=== PATIENT | male | born 1945 | race Caucasian/White ===

== ENCOUNTER 2023-02-05 13:10 | Outpatient (CLI) | payer MEDICARE, BC ==
[2023-02-05] MEDS ORDERED: Magnevist 469MG/ML 20 ML VIAL ONE (17:04)
== END 2023-02-05 13:11 | disposition home or self-care (01) ==
LOC: CSHMRI 13:10
PROVIDERS: ATTEND Psychiatry & Neurology Neurology
DX: R42 Dizziness and giddiness (principal); I67.2 Cerebral atherosclerosis; G31.9 Degenerative disease of nervous system, unspecified
CPT/HCPCS: 70544; 70553; A9579

== ENCOUNTER 2023-03-15 15:06 | Outpatient (CLI) | payer MEDICARE, BC | END 2023-03-15 15:07 | disposition home or self-care (01) | LOC: CSHMRI 15:06 | PROVIDERS: ATTEND Family Medicine | DX: M50.90 Cervical disc disorder, unspecified, unspecified cervical region (principal); M48.02 Spinal stenosis, cervical region; M53.82 Other specified dorsopathies, cervical region | CPT/HCPCS: 72141 ==

== ENCOUNTER 2024-01-17 12:38 | Outpatient (CLI) | payer MEDICARE, BC ==
[~2024-01-17 12:38] MED LIST: Iopamidol 300 61% 100 ML VIAL FS ONE
== END 2024-01-17 12:39 | disposition home or self-care (01) ==
LOC: CSHCT 12:38
PROVIDERS: ATTEND Internal Medicine Gastroenterology
DX: K57.32 Diverticulitis of large intestine without perforation or abscess without bleeding (principal)
CPT/HCPCS: 74160; 82565; Q9967

== ENCOUNTER 2024-07-27 16:54 | Observation (INO) | payer MEDICARE, BC ==
[2024-07-27 18:35] LABS: Anion Gap 15 mmol/L (10-20); BUN (Urea Nitrogen) 14 mg/dL (8.4-25.7); Calc. Creatinine Clearance 0 mL/min (70-130); Calcium 9.5 mg/dL (7.8-10.44); Carbon Dioxide 25 mmol/L (23-31); Chloride 104 mmol/L (98-107); Estimated GFR 74; Glucose 94 mg/dL (83-110); Sodium 139 mmol/L (136-145)
[2024-07-27] MEDS ORDERED: Famotidine/PF 20 mg/2ml Vial ONE (18:37)
[2024-07-27] MEDS ORDERED: Ondansetron PF 4 MG/2 ML Vial ONE (18:37)
[2024-07-27 18:38] LABS: Hematocrit 39.3 % (38.8-50.0); Hemoglobin 13.6 g/dL (13.5-17.5); Mean Corpuscular HGB CONC 34.6 g/dL (32.0-36.0); Mean Corpuscular Hemoglobin 31.3 pg (27.0-33.0); Mean Corpuscular Volume 90.6 fL (81.2-95.1); Platelet Count 129 10x3/uL (150-450); RBC Distribution Width 17.2 % (11.5-14.5); Red Blood Cell (RBC) Count 4.34 10x6/uL (4.32-5.72); White Blood Cell (WBC) Count 7.8 10x3/uL (3.5-10.5)
[2024-07-27 18:39] LABS: MDiff Complete? YES
[2024-07-27 18:43] LABS: Troponin I 0.023 ng/mL (< 0.028)
[2024-07-27 20:21] LABS: Troponin I 0.046 ng/mL (< 0.028)
[2024-07-27 20:31] LABS: Lymphocytes 13 % (21-51)
[2024-07-27 20:32] LABS: Monocytes 46 % (0-10)
[2024-07-27 20:34] LABS: Band 5 % (5-11); Neutrophil 36 % (42-75)
[2024-07-27 20:40] LABS: Anisocytosis SLIGHT = 6-15 cells (100X) (0-5/hpf)
[2024-07-27 20:41] LABS: Platelet Adequacy Comment Appears Decreased
[2024-07-27] MEDS ORDERED: Acetaminophen 325 MG TAB PO PRN (21:21)
[2024-07-27] MEDS ORDERED: Calcium Carbonate 500 MG ChewTAB PO PRN (21:21)
[2024-07-27] MEDS ORDERED: Senokot S 8.6-50 MG TAB PO PRN (21:21)
[2024-07-27] MEDS ORDERED: Ondansetron PF 4 MG/2 ML Vial IVP PRN (21:21)
[2024-07-27 22:27] VITALS: BMI 28.8
[2024-07-27] MEDS: Pantoprazole 40 MG VIAL IVP SCH (23:46)
[2024-07-27] MEDS: Apixaban 5 MG TAB PO SCH (23:46)
[2024-07-27] MEDS: Ciprofloxacin 500 MG TAB PO SCH (23:47)
[2024-07-27] MEDS: metroNIDAZOLE 250 MG TAB PO SCH (23:47)
[2024-07-28 00:03] LABS: Influenza A by NAA Not Detected (NotDetected); Influenza B by NAA Not Detected (NotDetected); RSV by NAA Not Detected (NotDetected); SARS-CoV-2 NAA Rapid Test Not Detected (NotDetected)
[2024-07-28] MEDS: Lidocaine 2% Viscous Solution 10 ML, Aluminum & Magnesium Hydroxide 30 ML SSW SCH (00:04)
[2024-07-28 04:58] LABS: Hemoglobin 11.9 g/dL (13.5-17.5); Mean Corpuscular Hemoglobin 31.2 pg (27.0-33.0); Mean Corpuscular Volume 91.6 fL (81.2-95.1); RBC Distribution Width 17.4 % (11.5-14.5); Red Blood Cell (RBC) Count 3.82 10x6/uL (4.32-5.72)
[2024-07-28 05:06] LABS: Anion Gap 15 mmol/L (10-20); BUN (Urea Nitrogen) 13 mg/dL (8.4-25.7); Calc. Creatinine Clearance 86 mL/min (70-130); Calcium 8.8 mg/dL (7.8-10.44); Carbon Dioxide 21 mmol/L (23-31); Chloride 106 mmol/L (98-107); Estimated GFR 80; Glucose 90 mg/dL (83-110); Potassium 4.3 mmol/L (3.5-5.1); Sodium 138 mmol/L (136-145)
[2024-07-28 05:09] LABS: Troponin I 0.024 ng/mL (< 0.028)
[2024-07-28 05:44] LABS: ALT (SGPT) 17 U/L (8-55); AST (SGOT) 22 U/L (5-34); Albumin 3.7 g/dL (3.4-4.8); Alkaline Phosphatase 48 U/L (40-110); Bilirubin, Direct 0.4 mg/dL (0.1-0.3); Bilirubin, Total 0.9 mg/dL (0.2-1.2); Lipase 79 U/L (8-78); Protein, Total 6.5 g/dL (5.8-8.1)
[2024-07-28 06:01] LABS: Platelet Count 96 10x3/uL (150-450)
[2024-07-28 07:13] LABS: Band 11 % (5-11); Monocytes 47 % (0-10)
[2024-07-28 07:14] LABS: Lymphocytes 16 % (21-51); Neutrophil 26 % (42-75)
[2024-07-28 07:17] LABS: Anisocytosis SLIGHT = 6-15 cells (100X) (0-5/hpf); Ovalocytes SLIGHT = 2-5 cells (100X) (0-1/hpf); Platelet Adequacy Comment Appears Decreased
[2024-07-28 07:19] LABS: Reflex for Review?? YES
[2024-07-28] MEDS ORDERED: metroNIDAZOLE 500 MG TAB PO SCH (09:00)
[2024-07-28] MEDS: Timolol 0.5% Ophth Soln 5 ml Bottle EA EYE SCH (09:32)
[2024-07-28] MEDS: Apixaban 5 MG TAB PO SCH (09:32)
[2024-07-28] MEDS: Pantoprazole DR 40 MG TAB PO SCH (09:32)
[2024-07-28] MEDS: Metoprolol Tartrate 25 MG TAB PO SCH (09:32)
[2024-07-28 12:41] VITALS: BP 115/67; TEMP 97.6
[2024-07-28] MEDS ORDERED: Non-Formulary Medication 1 EACH (Bempedoic Acid/Ezetimibe [Nexlizet 180-10 Mg Tablet] 1 EA PO SCH (21:00)
[2024-07-28] MEDS ORDERED: Latanoprost 0.005% Ophth Soln 2.5 ml Bottle EA EYE SCH (21:00)
[2024-07-30 10:17] LABS: White Blood Cell (WBC) Count 6.3 10x3/uL (3.5-10.5)
[2024-07-30 10:19] LABS: MDiff Complete? YES
== END 2024-07-28 14:50 | disposition home or self-care (01) ==
LOC: CSHERS 16:54 → CSHTELE 21:20
PROVIDERS: ADMIT Student in an Organized Health Care Education/Training Program; ATTEND Internal Medicine
DX: R07.89 Other chest pain (principal); R79.89 Other specified abnormal findings of blood chemistry; R10.13 Epigastric pain; I25.10 Atherosclerotic heart disease of native coronary artery without angina pectoris; I48.0 Paroxysmal atrial fibrillation; I49.3 Ventricular premature depolarization; E78.5 Hyperlipidemia, unspecified; K21.9 Gastro-esophageal reflux disease without esophagitis; H40.9 Unspecified glaucoma; Z90.49 Acquired absence of other specified parts of digestive tract; Z87.891 Personal history of nicotine dependence; Z98.49 Cataract extraction status, unspecified eye; Z98.890 Other specified postprocedural states; Z88.8 Allergy status to other drugs, medicaments and biological substances; Z88.1 Allergy status to other antibiotic agents; Z88.2 Allergy status to sulfonamides; Z79.01 Long term (current) use of anticoagulants; Z79.899 Other long term (current) drug therapy
CPT/HCPCS: 0241U; 71045; 74177; 80048 ×2; 80076; 83690; 83880; 84484 ×3; 85025 ×2; 86140; 93005; 96374; 96375 ×2; 99285; G0378 ×2; J2405; J2470; J3490; 36415; 85060